=== PATIENT | male | born 1980 | race Caucasian/White ===

== ENCOUNTER 2023-02-05 19:01 | Observation (INO) | payer BC ==
[~2023-02-05] VITALS: Ht 190.5 cm; Wt 80.7 kg
[2023-02-05 19:29] LABS: BASOPHILS % (AUTO) 0.8 % (0.0-5.0); EOSINOPHILS % (AUTO) 2.4 % (0.0-8.0); HEMATOCRIT 47.1 % (42-54); MEAN CORPUSCULAR HGB CONC 34.6 g/dL (32.0-36.0); MEAN CORPUSCULAR VOLUME 92.5 fL (79-99); MONOCYTES % (AUTO) 7.5 % (3.0-13.0); PLATELET COUNT (AUTO) 396 K/uL (130-400); RED BLOOD CELL COUNT(AUTO) 5.09 MIL/uL (4.50-6.20); RED CELL DISTRIBUTION WIDTH 13.9 % (11.0-15.5); WHITE BLOOD COUNT (AUTO) 7.2 K/uL (4.8-10.8)
[2023-02-05 19:43] LABS: INR 0.93 (0.85-1.15); PROTHROMBIN TIME 10.3 SEC (9.6-11.6)
[2023-02-05 19:45] LABS: PARTIAL THROMBOPLASTIN TIME 32.4 SEC (26.3-35.5)
[2023-02-05 19:47] LABS: CREATININE 0.9 mg/dL (0.5-1.5)
[2023-02-05 19:56] LABS: ALBUMIN 4.1 g/dL (3.5-5.0)
[2023-02-06 01:40] LABS: APPEARANCE,URINE CLEAR (CLEAR); BILIRUBIN,URINE NEGATIVE (NEGATIVE); COLOR,URINE LIGHT-YELLOW (YELLOW); GLUCOSE, URINE (UA) NEGATIVE (NEGATIVE); KETONES,URINE NEGATIVE (NEGATIVE); LEUKOCYTE ESTERASE ,URINE NEGATIVE Leu/uL (NEGATIVE); NITRATE,URINE NEGATIVE (NEGATIVE); OCCULT BLOOD,URINE NEGATIVE (NEGATIVE); PH,URINE 5.5 (5.0-8.0); PROTEIN,URINE NEGATIVE (NEGATIVE); UROBILINOGEN,URINE 0.2 mg/dL (0.2-1.0)
[2023-02-06 01:48] LABS: AMPHET/METH SCREEN,URINE NEGATIVE (NEGATIVE); BARBITURATE SCREEN, URINE NEGATIVE (NEGATIVE); BENZODIAZEPINES SCREEN,URINE NEGATIVE (NEGATIVE); CANNABINOID SCREEN,URINE POSITIVE (NEGATIVE); COCAINE SCREEN,URINE NEGATIVE (NEGATIVE); OPIATE SCREEN,URINE NEGATIVE (NEGATIVE); PHENCYCLIDINE SCREEN,URINE NEGATIVE (NEGATIVE)
[2023-02-06] MEDS ORDERED: CEFTRIAXONE 2GM VIAL IVPB ONE (03:00)
[2023-02-06] MEDS ORDERED: ASPIRIN 325MG TAB PO ONE (03:00)
[2023-02-06] MEDS ORDERED: LABETALOL 20MG SYG IV PRN (03:30)
[2023-02-06] MEDS ORDERED: TEMAZEPAM 15 MG CAPSULE PO PRN (03:30)
[2023-02-06] MEDS ORDERED: CLONIDINE HCL 0.1 MG TABLET PO PRN (03:30)
[2023-02-06] MEDS ORDERED: ACETAMINOPHEN 325 MG TAB PO PRN (03:30)
[2023-02-06] MEDS ORDERED: ONDANSETRON 4MG INJ IVP PRN (03:30)
[2023-02-06] MEDS ORDERED: HYDRALAZINE 20MG/ML VIAL IV PRN (03:30)
[2023-02-06] MEDS: 0.9%NACL 1000ML 1,000 ML IV SCH ×3 (04:26→19:30)
[2023-02-06] MEDS: INSULIN HUMULIN R 100 UNIT/ML 3ML SQ SCH ×4 (08:00→21:00)
[2023-02-06] MEDS: ENOXAPARIN SODIUM 30 MG/0.3 ML SQ SCH (09:00)
[2023-02-06] MEDS: ASPIRIN 81MG CHEW TAB PO SCH (09:00)
[2023-02-06] MEDS ORDERED: SIMVASTATIN 20 MG TABLET PO SCH (21:00)
[2023-02-06 22:20] VITALS: BP 135/88
[2023-02-07] MEDS: 0.9%NACL 1000ML 1,000 ML IV SCH (03:25)
[2023-02-07 04:19] VITALS: BP 120/64
[2023-02-07 05:22] LABS: HEMATOCRIT 45.7 % (42-54); MEAN CORPUSCULAR HEMOGLOBIN 31.8 pg (27.0-33.0); MEAN CORPUSCULAR HGB CONC 33.9 g/dL (32.0-36.0); MEAN CORPUSCULAR VOLUME 93.8 fL (79-99); RED BLOOD CELL COUNT(AUTO) 4.87 MIL/uL (4.50-6.20); RED CELL DISTRIBUTION WIDTH 13.7 % (11.0-15.5); WHITE BLOOD COUNT (AUTO) 8.5 K/uL (4.8-10.8)
[2023-02-07 05:34] LABS: CREATININE 0.8 mg/dL (0.5-1.5); MAGNESIUM 1.7 mg/dL (1.80-2.40); PHOSPHORUS 3.6 mg/dL (2.5-4.9); POTASSIUM 3.5 mmol/L (3.5-5.1); THYROID STIMULATING HORMONE 4.56 uIU/mL (0.36-3.74)
[2023-02-07] MEDS: INSULIN HUMULIN R 100 UNIT/ML 3ML SQ SCH ×2 (06:38→11:30)
[2023-02-07 08:00] VITALS: BP 111/78
[2023-02-07] MEDS: ASPIRIN 81MG CHEW TAB PO SCH (09:31)
[2023-02-07] MEDS: ENOXAPARIN SODIUM 30 MG/0.3 ML SQ SCH (09:32)
[2023-02-07 12:00] VITALS: BP 124/90
[2023-02-08] MEDS ORDERED: MAGNESIUM OXIDE 400 MG TABLET PO SCH (09:00)
== END 2023-02-07 16:00 | disposition home or self-care (01) ==
LOC: EDH 19:01 → EDHIP 02-06 03:11 → 3BH 02-06 22:11
PROVIDERS: ADMIT Internal Medicine Critical Care Medicine; ATTEND Internal Medicine Critical Care Medicine
DX: J32.0 Chronic maxillary sinusitis (principal); R53.1 Weakness; I63.9 Cerebral infarction, unspecified; K44.9 Diaphragmatic hernia without obstruction or gangrene; F12.10 Cannabis abuse, uncomplicated; F10.10 Alcohol abuse, uncomplicated; F17.210 Nicotine dependence, cigarettes, uncomplicated; G89.29 Other chronic pain; F32.A Depression, unspecified; Z79.899 Other long term (current) drug therapy
CPT/HCPCS: 84484; 80053; 85025; 85610; 85730; 83605 ×2; 71045; 70450; 93005; 96372 ×2; 96365; 96366; 99285; 80305; 82948 ×6; 81003; 36415 ×2; 93306; 93356; 93880; 70551; 84443; 82550; 83735; 84100; 80061; 80048; 83880; 85027; G0378 ×36; J0696; J1650 ×2